=== PATIENT | male | born 1955 | race Caucasian/White ===

== ENCOUNTER 2022-11-12 17:01 | Observation (INO) | payer MEDICARE, OTHER ==
[2022-11-12] MEDS ORDERED: Aspirin Chewable 81 MG TAB ONE (17:36)
[2022-11-12 17:50] LABS: #Eosinphils 0.2 thou/uL (0.0-0.7); #Lymphocytes 1.4 thou/uL (1.20-3.40); #Monocytes 0.6 thou/uL (0.11-0.59); #Neutrophils 5.9 thou/uL (1.40-6.50); %Basophils 0.5 % (0.0-1.0); %Eosinophils 2.6 % (0.0-10.0); %Lymphocytes 17.3 % (21.0-51.0); %Monocytes 7.5 % (0.0-10.0); Hemoglobin 14.7 g/dL (14.0-18.0); Mean Corpuscular HGB CONC 34.7 g/dL (32.0-36.0); Mean Corpuscular Volume 89.2 fl (78.0-98.0); Mean Platelet Volume 8.2 fL (7.4-10.4); Platelet Count 176 10x3/uL (130-400); RBC Distribution Width 12.5 % (11.5-14.5); Red Blood Cell (RBC) Count 4.74 mill/uL (4.70-6.10); White Blood Cell (WBC) Count 8.2 10x3/uL (4.8-10.8)
[2022-11-12 18:18] LABS: ALT (SGPT) 20 U/L (8-55); AST (SGOT) 16 U/L (5-34); Albumin 4.4 g/dL (3.4-4.8); Alkaline Phosphatase 78 U/L (40-110); Anion Gap 14 mmol/L (10-20); BUN (Urea Nitrogen) 15 mg/dL (8.4-25.7); Bilirubin, Total 0.4 mg/dL (0.2-1.2); Calc. Creatinine Clearance 0 mL/min (70-130); Calcium 9.6 mg/dL (7.8-10.44); Carbon Dioxide 26 mmol/L (23-31); Chloride 103 mmol/L (98-107); Estimated GFR 84; Globulin 2.7 g/dL (2.4-3.5); Glucose 230 mg/dL (80-115); Lipase 24 U/L (8-78); Potassium 3.8 mmol/L (3.5-5.1); Protein, Total 7.1 g/dL (5.8-8.1); Sodium 139 mmol/L (136-145)
[2022-11-12] MEDS ORDERED: Nitroglycerin 0.4 MG TAB (25 Tab Bottle) SL PRN (19:16)
[2022-11-12] MEDS ORDERED: Ondansetron ODT 4 MG TAB PO PRN (19:17)
[2022-11-12] MEDS ORDERED: Senokot S 8.6-50 MG TAB PO PRN (19:17)
[2022-11-12] MEDS ORDERED: Dextrose 5% in Water 1,000 ML IV PRN (19:29)
[2022-11-12] MEDS ORDERED: HumaLOG 300 UNITS/3 ML VIAL SC PRN ×2 (19:29)
[2022-11-12] MEDS ORDERED: Dextrose 50% Abboject 50 ML SYRINGE SLOW IVP PRN (19:29)
[2022-11-12 20:36] LABS: Hemoglobin A1c 7.6 % (4.0-6.0)
[2022-11-12 20:42] LABS: Troponin I Less than 0.010 ng/mL (< 0.028)
[2022-11-12 23:13] LABS: Troponin I Less than 0.010 ng/mL (< 0.028)
[2022-11-12] MEDS ORDERED: Famotidine 20 MG TAB ONE (23:37)
[2022-11-12] MEDS: Famotidine 20 MG TAB PO SCH (23:42)
[2022-11-13 06:02] LABS: #Eosinphils 0.2 thou/uL (0.0-0.7); #Lymphocytes 1.5 thou/uL (1.20-3.40); #Monocytes 0.5 thou/uL (0.11-0.59); #Neutrophils 4.4 thou/uL (1.40-6.50); %Basophils 0.5 % (0.0-1.0); %Eosinophils 2.9 % (0.0-10.0); %Lymphocytes 22.9 % (21.0-51.0); %Monocytes 7.8 % (0.0-10.0); Hemoglobin 13.8 g/dL (14.0-18.0); Mean Corpuscular Hemoglobin 30.1 pg (27.0-31.0); Mean Corpuscular Volume 88.4 fl (78.0-98.0); Platelet Count 167 10x3/uL (130-400); RBC Distribution Width 12.4 % (11.5-14.5); White Blood Cell (WBC) Count 6.7 10x3/uL (4.8-10.8)
[2022-11-13 06:23] LABS: Anion Gap 15 mmol/L (10-20); BUN (Urea Nitrogen) 12 mg/dL (8.4-25.7); Calc. Creatinine Clearance 0 mL/min (70-130); Calcium 9.1 mg/dL (7.8-10.44); Carbon Dioxide 22 mmol/L (23-31); Cardiac Risk 2.8 (Less than 4.5); Chloride 107 mmol/L (98-107); Cholesterol 88 mg/dl (< 200 Desired); Estimated GFR 101; Glucose 154 mg/dL (80-115); HDL Cholesterol 31 mg/dL (>60 Neg Risk); LDL Cholesterol, Calculated 47 mg/dL; Potassium 3.7 mmol/L (3.5-5.1); Sodium 140 mmol/L (136-145); Triglycerides 48 mg/dL (Less than 150)
[2022-11-13] MEDS ORDERED: Aspirin Chewable 81 MG TAB PO SCH (09:00)
[2022-11-13] MEDS: Famotidine 20 MG TAB PO SCH (09:33)
[2022-11-13] MEDS ORDERED: Lisinopril 10 MG TAB PO SCH (13:15)
[2022-11-13] MEDS ORDERED: Lisinopril 10 MG TAB ONE (14:36)
[2022-11-13 14:58] LABS: PTT 25.7 sec (22.9-36.1); Prothrombin Time 13.8 sec (12.0-14.7)
[2022-11-13 15:00] LABS: D-Dimer Test Less than 0.27 *mcg/mL (0.27-0.43)
[2022-11-13] MEDS ORDERED: Regadenoson 0.4 MG/5 ML SYRINGE ONE (15:44)
[2022-11-13 19:27] VITALS: BP 126/79; TEMP 97.9
[2022-11-13] MEDS ORDERED: Rosuvastatin 10 MG TAB PO SCH (21:00)
[2022-11-14] MEDS ORDERED: Lisinopril 10 MG TAB PO SCH (09:00)
== END 2022-11-13 18:11 | disposition home or self-care (01) ==
LOC: ERS 17:01 → ERHOLD 19:15
PROVIDERS: ADMIT Family Medicine; ATTEND Family Medicine
DX: R07.89 Other chest pain (principal); I10 Essential (primary) hypertension; E11.9 Type 2 diabetes mellitus without complications; E78.5 Hyperlipidemia, unspecified; Z86.73 Personal history of transient ischemic attack (TIA), and cerebral infarction without residual deficits; Z86.711 Personal history of pulmonary embolism; Z86.718 Personal history of other venous thrombosis and embolism; Z79.82 Long term (current) use of aspirin; Z79.84 Long term (current) use of oral hypoglycemic drugs; Z79.899 Other long term (current) drug therapy
CPT/HCPCS: 71045; 78452; 80048; 80053; 80061; 82962; 83036; 83690; 84443; 84484 ×2; 85025 ×2; 85379; 85610; 85730; 86850; 86900; 86901; 93005; 93017; 99285; A9500; G0378 ×2; 36415; 36416; J2785

== ENCOUNTER 2022-11-20 12:58 | Outpatient (CLI) | payer MEDICARE ==
[2022-11-20 14:15] LABS: #Eosinphils 0.3 10x3/uL (0.0-0.5); #Monocytes 0.6 10x3/uL (0.0-1.1); #Neutrophils 4.5 10x3/uL (1.5-8.4); %Basophils 0.5 % (0.0-2.0); %Eosinophils 4.4 % (0.0-6.0); %Lymphocytes 18.4 % (18.0-47.0); %Monocytes 8.3 % (0.0-10.0); %Neutrophils 67.9 % (40.0-75.0); Mean Corpuscular HGB CONC 33.4 g/dL (32.0-36.0); Mean Corpuscular Volume 86.9 fl (81.2-95.1); Mean Platelet Volume 11.7 fl (7.4-10.4); Platelet Count 197 10x3/uL (150-450); RBC Distribution Width 12.9 % (11.5-14.5); Red Blood Cell (RBC) Count 4.82 10x6/uL (4.32-5.72); White Blood Cell (WBC) Count 6.6 10x3/uL (3.5-10.5)
[2022-11-20 14:42] LABS: Anion Gap 15 mmol/L (10-20); BUN (Urea Nitrogen) 10 mg/dL (8.4-25.7); Calc. Creatinine Clearance 0 mL/min (70-130); Calcium 9.4 mg/dL (7.8-10.44); Carbon Dioxide 23 mmol/L (23-31); Chloride 105 mmol/L (98-107); Estimated GFR 98; Glucose 215 mg/dL (80-115); Potassium 4.7 mmol/L (3.5-5.1); Sodium 138 mmol/L (136-145)
== END 2022-11-20 12:59 | disposition home or self-care (01) ==
LOC: LABBT 12:58
PROVIDERS: ATTEND Internal Medicine Cardiovascular Disease
DX: Z01.812 Encounter for preprocedural laboratory examination (principal); R07.9 Chest pain, unspecified
CPT/HCPCS: 80048; 85025

== ENCOUNTER 2022-11-22 05:34 | Day surgery (SDC) | payer MEDICARE ==
[2022-11-20 10:23] VITALS: BMI 24.7
[2022-11-22] MEDS ORDERED: Heparin 10,000 UNITS/ 10 ML VIAL ONE (06:02)
[2022-11-22] MEDS ORDERED: Lidocaine 1% (PF) 30 ML VIAL ONE (06:02)
[2022-11-22] MEDS ORDERED: Midazolam HCl 2 mg/2 ml Vial ONE (06:48)
[2022-11-22] MEDS ORDERED: fentaNYL 50 mcg/mL 1 mL Vial ONE (06:48)
[2022-11-22] MEDS ORDERED: Nitroglycerin 50 MG/250 ML BOT 250 ML ONE (07:35)
[2022-11-22] MEDS ORDERED: PHENYLEPHRINE-NS 100 MCG/ML 10 ML SYRINGE ONE (07:38)
[2022-11-22] MEDS ORDERED: Iopamidol 370 76% 100 ML VIAL ONE (14:38)
== END 2022-11-22 12:23 | disposition home or self-care (01) ==
LOC: CCL 05:34
PROVIDERS: ATTEND Internal Medicine Cardiovascular Disease
PROC: 4A023N7 Measurement of Cardiac Sampling and Pressure, Left Heart, Percutaneous Approach (ICD-10-PCS; principal; 2022-11-22)
PROC: B2111ZZ Fluoroscopy of Multiple Coronary Arteries using Low Osmolar Contrast (ICD-10-PCS; 2022-11-22)
DX: I25.10 Atherosclerotic heart disease of native coronary artery without angina pectoris (principal); E11.9 Type 2 diabetes mellitus without complications; I10 Essential (primary) hypertension; E78.00 Pure hypercholesterolemia, unspecified; Z87.891 Personal history of nicotine dependence; Z79.82 Long term (current) use of aspirin; Z79.84 Long term (current) use of oral hypoglycemic drugs; Z79.899 Other long term (current) drug therapy
CPT/HCPCS: C1769 ×2; C1894; J3010; 93458; 99152; 99153; J1644; J2001; J2250; Q9967